=== PATIENT | female | born 1950 | race American Indian/Alaskan Native ===

== ENCOUNTER 2020-01-08 19:18 | Emergency (ER) | payer MEDICARE, MEDICAID ==
--- NOTE | 2020-01-08 19:56 | EDM.PDOC ---
ED HPI GENERAL MEDICAL PROBLEM - General Chief Complaint: General Stated Complaint: MEDICAL [facility] Time Seen by Provider: 01/08/20 19:35 Source of Information: Reports: Patient, EMS History Limitations: Reports: No Limitations - History of Present Illness INITIAL COMMENTS - FREE TEXT/NARRATIVE: 69-year-old female from out of town, brought in by ambulance with lightheadedness and intermittent blurry vision. She is a diabetic but has not been taking her insulin for the last several days, she is out. She was living in a health center in [place] but left A, and she is not welcome back because she broke the rules of social distancing during the coronavirus pandemic. She has a persistent right periorbital discomfort after falling and bumping her head but that is been worked up with x-rays, treated, and she is currently on a tapering prednisone course for the inflammation. She is unsure what medicine she takes. She thinks she may have a UTI as well because she has been more incontinent than usual. No dysuria. Onset: Unknown/Unsure Associated Symptoms: Reports: Weakness, Other (Dizziness, intermittent blurred vision). Denies: Confusion, Chest Pain, Cough, Nausea/Vomiting Treatments DIRECTOR PUBLIC SERVICE: Reports: See EMS Report Lower Abdomen Pain Score (Numeric/FACES): 3 - Related Data Allergies Allergy/AdvReac Type Severity Reaction Status Date / Time acetaminophen Allergy Cannot Verified 01/08/20 19:27 [From Darvocet-N] Remember propoxyphene Allergy Cannot Verified 01/08/20 19:27 [From Darvocet-N] Remember Home Meds: Home Meds . 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 History: Reports: Musculoskeletal History: Reports: Arthritis, Back Pain, Chronic, Fracture, Neck Pain, Chronic Neurological History: Reports: Concussion Psychiatric History: Reports: Anxiety, Depression Endocrine/Metabolic History: Reports: Diabetes, Type II, Obesity/BMI 30+ Other Endocrine/Metabolic History: thyroid issues - Infectious Disease History Infectious Disease History: Reports: Chicken Pox, Measles - Past Surgical History Musculoskeletal Surgical History: Reports: Knee Replacement Oncologic Surgical History: Reports: Biopsy of Breast Social & Family History - Family History Family Medical History: Noncontributory - Tobacco Use Smoking Status *Q: Never Smoker - Caffeine Use Caffeine Use: Reports: Coffee, Soda - Recreational Drug Use Recreational Drug Use: No ED ROS GENERAL - Review of Systems Review Of Systems: See Below Constitutional: Reports: Malaise. Denies: Fever, Chills HEENT: Reports: Vision Change Respiratory: Denies: Shortness of Breath Cardiovascular: Denies: Chest Pain GI/Abdominal: Reports: Abdominal Pain (Intermittent suprapubic and right lower quadrant discomfort with urination, a pulling sensation) : Reports: Incontinence, Urgency, Other (She has a pulling sensation in her lower abdomen with urination). Denies: Dysuria Neurological: Reports: Dizziness, Headache Psychiatric: Reports: No Symptoms ED EXAM, GENERAL - Physical Exam Exam: See Below Exam Limited By: No Limitations General Appearance: Alert, No Apparent Distress Eye Exam: Right Eye: Periorbital Changes (She does react with tenderness to palpation of the right periorbital area but there is no objective deformity or bruising), Bilateral Eye: PERRL Head: Atraumatic Neck: Supple, Non-Tender Respiratory/Chest: No Respiratory Distress, Lungs Clear Cardiovascular: Regular Rate, Rhythm GI/Abdominal: Soft, Tender (Reacts with tenderness to palpation across the lower abdomen but no focal guarding or rebound) Neurological: Alert, Oriented Psychiatric: Flat Affect Skin Exam: Warm, Dry Course - Vital Signs Last Recorded V/S: Last Vital Signs Temp 99.2 F 01/08/20 19:31 Pulse 96 01/08/20 21:03 Resp 18 01/08/20 19:31 BP 163/70 H 01/08/20 21:03 Pulse Ox 92 L 01/08/20 21:03 - Orders/Labs/Meds Orders: Active Orders 24 hr Category Date Time Status GLUCOSE POC LAB TO COLLECT [POC] Stat Lab 01/08/20 21:35 Ordered Labs: Laboratory Tests 01/08/20 01/08/20 01/08/20 Range/Units 19:58 19:58 20:38 WBC 8.6 (4.5-11.0) K/uL RBC 4.25 (3.30-5.50) M/uL Hgb 11.5 L (12.0-15.0) g/dL Hct 36.6 (36.0-48.0) % MCV 86 (80-98) fL MCH 27 (27-31) pg MCHC 31 L (32-36) % Plt Count 173 (150-400) K/uL Neut % (Auto) 80 H (36-66) % Lymph % (Auto) 13 L (24-44) % [place] % (Auto) 6 (2-6) % Eos % (Auto) 1 L (2-4) % Baso % (Auto) 0 (0-1) % Sodium 136 L (140-148) mmol/L Potassium 4.2 (3.6-5.2) mmol/L Chloride 98 L (100-108) mmol/L Carbon Dioxide 32 (21-32) mmol/L Anion Gap 10.2 (5.0-14.0) mmol/L BUN 31 H (7-18) mg/dL Creatinine 1.3 H (0.6-1.0) mg/dL Est Cr Clr Drug Dosing 36.26 mL/min Estimated GFR (MDRD) 41 L (>60) Glucose 621 H* (74-106) mg/dL Calcium 8.5 (8.5-10.1) mg/dL Total Bilirubin 0.8 (0.2-1.0) mg/dL AST 11 L (15-37) U/L ALT 21 (12-78) U/L Alkaline Phosphatase 159 H (46-116) U/L Total Protein 7.8 (6.4-8.2) g/dL Albumin 2.9 L (3.4-5.0) g/dL Globulin 4.9 H (2.3-3.5) g/dL Albumin/Globulin Ratio 0.6 L (1.2-2.2) Urine Color Yellow (YELLOW) Urine Appearance Slightly cloudy A (CLEAR) Urine pH 6.0 (5.0-8.0) Ur Specific [place] 1.015 (1.008-1.030) Urine Protein Trace H (NEGATIVE) mg/dL Urine Glucose (UA) 500 H (NEGATIVE) mg/dL Urine Ketones Negative (NEGATIVE) mg/dL Urine Occult Blood Moderate H (NEGATIVE) Urine Nitrite Negative (NEGATIVE) Urine Bilirubin Negative (NEGATIVE) Urine Urobilinogen 0.2 (0.2-1.0) EU/dL Ur Leukocyte Esterase Negative (NEGATIVE) Urine RBC 5-10 H (0-5) Urine WBC 0-5 (0-5) Ur Epithelial Cells Many Amorphous Sediment Few Urine Bacteria Not seen Urine Mucus Not seen Urine Opiates Screen (NEGATIVE) Ur Oxycodone Screen (NEGATIVE) Urine Methadone Screen (NEGATIVE) Ur Propoxyphene Screen (NEGATIVE) Ur Barbiturates Screen (NEGATIVE) Ur Tricyclics Screen (NEGATIVE) Ur Phencyclidine Scrn (NEGATIVE) Ur Amphetamine Screen (NEGATIVE) U Methamphetamines Scrn (NEGATIVE) Urine MDMA Screen (NEGATIVE) U Benzodiazepines Scrn (NEGATIVE) U Cocaine Metab Screen (NEGATIVE) U Marijuana (THC) Screen (NEGATIVE) 01/08/20 Range/Units 20:38 WBC (4.5-11.0) K/uL RBC (3.30-5.50) M/uL Hgb (12.0-15.0) g/dL Hct (36.0-48.0) % MCV (80-98) fL MCH (27-31) pg MCHC (32-36) % Plt Count (150-400) K/uL Neut % (Auto) (36-66) % Lymph % (Auto) (24-44) % [place] % (Auto) (2-6) % Eos % (Auto) (2-4) % Baso % (Auto) (0-1) % Sodium (140-148) mmol/L Potassium (3.6-5.2) mmol/L Chloride (100-108) mmol/L Carbon Dioxide (21-32) mmol/L Anion Gap (5.0-14.0) mmol/L BUN (7-18) mg/dL Creatinine (0.6-1.0) mg/dL Est Cr Clr Drug Dosing mL/min Estimated GFR (MDRD) (>60) Glucose (74-106) mg/dL Calcium (8.5-10.1) mg/dL Total Bilirubin (0.2-1.0) mg/dL AST (15-37) U/L ALT (12-78) U/L Alkaline Phosphatase (46-116) U/L Total Protein (6.4-8.2) g/dL Albumin (3.4-5.0) g/dL Globulin (2.3-3.5) g/dL Albumin/Globulin Ratio (1.2-2.2) Urine Color (YELLOW) Urine Appearance (CLEAR) Urine pH (5.0-8.0) Ur Specific [place] (1.008-1.030) Urine Protein (NEGATIVE) mg/dL Urine Glucose (UA) (NEGATIVE) mg/dL Urine Ketones (NEGATIVE) mg/dL Urine Occult Blood (NEGATIVE) Urine Nitrite (NEGATIVE) Urine Bilirubin (NEGATIVE) Urine Urobilinogen (0.2-1.0) EU/dL Ur Leukocyte Esterase (NEGATIVE) Urine RBC (0-5) Urine WBC (0-5) Ur Epithelial Cells Amorphous Sediment Urine Bacteria Urine Mucus Urine Opiates Screen Negative (NEGATIVE) Ur Oxycodone Screen Presumptive positive H (NEGATIVE) Urine Methadone Screen Negative (NEGATIVE) Ur Propoxyphene Screen Negative (NEGATIVE) Ur Barbiturates Screen Negative (NEGATIVE) Ur Tricyclics Screen Presumptive positive H (NEGATIVE) Ur Phencyclidine Scrn Negative (NEGATIVE) Ur Amphetamine Screen Negative (NEGATIVE) U Methamphetamines Scrn Negative (NEGATIVE) Urine MDMA Screen Negative (NEGATIVE) U Benzodiazepines Scrn Negative (NEGATIVE) U Cocaine Metab Screen Negative (NEGATIVE) U Marijuana (THC) Screen Negative (NEGATIVE) Meds: Medications Discontinued Medications Generic Name Dose Route Start Last Admin Trade Name Yogiq PRN Reason Stop Dose Admin Insulin Glargine 20 units 01/08/20 20:28 01/08/20 20:59 Lantus Solostar SUBCUT 01/08/20 20:29 20 units ONETIME ONE Administration Insulin Human Lispro 12 unit 01/08/20 20:53 01/08/20 21:09 Humalog SUBCUT 01/08/20 20:54 12 unit ONETIME ONE Administration Insulin Human Regular 12 unit 01/08/20 21:42 01/08/20 21:43 Humulin R IVPUSH 01/08/20 21:43 12 units ONETIME ONE Administration - Re-Assessments/Exams Free Text/Narrative Re-Assessment/Exam: 01/08/20 20:58 Glucose is 620 but the rest of her labs are actually fairly reassuring. Anion gap is normal, white count and hemoglobin are normal. She was given 20 units of long-acting insulin subcu along with 12 units of fast acting insulin. UA is positive for oxycodone which she is not prescribed but shows no evidence of infection. Patient will be discharged with the remaining insulin and her pens, to take 20 units of long-acting insulin daily and a sliding scale using short acting insulin. She should recheck as soon as possible with her primary doctor next week to refill her medications. 01/08/20 22:45 Prior to the patient's sister arriving to take her home she became very angry that we were "doing more". She was also very angry that we were making her wait so long, however we were waiting for her sister to come and pick her up. She refused to take her insulin with her and basically left AMA. Her sister admitted that she "does this all the time". Departure - Departure Time of Disposition: 22:30 Disposition: Home, Self-Care 01 Clinical Impression: Hyperglycemia, Noncompliance with diabetes treatment - Discharge Information Instructions: Hyperglycemia, [id number] Referrals: PCP,None [Primary Care Provider] - Forms: ED Department Discharge Care Plan Goals: Take 20 units of long-acting insulin subcutaneous each morning, and use short acting insulin on a sliding scale as before. Recheck with your primary provider to refill your medications as soon as you are home. Sepsis Event Note - Evaluation Sepsis Screening Result: No Definite Risk - Focused Exam Vital Signs: Vital Signs Temp Pulse Resp BP Pulse Ox 01/08/20 21:03 96 163/70 H 92 L 01/08/20 19:31 99.2 F 99 18 142/57 H 94 L 01/08/20 19:19 99.2 F 99 18 142/57 H 94 L Date Exam was Performed: 01/08/20 Time Exam was Performed: 22:44 - My Orders Last 24 Hours: My Active Orders 01/08/20 21:35 GLUCOSE POC LAB TO COLLECT [POC] Stat - Assessment/Plan Last 24 Hours: My Active Orders 01/08/20 21:35 GLUCOSE POC LAB TO COLLECT [POC] Stat
[2020-01-08] MEDS ORDERED: Insulin Regular, Human 100 Units/ML 3 ML Vial IVPUSH ONE ×2 (20:27→21:42)
[2020-01-08] MEDS ORDERED: Insulin Glargine,Human Rec. Analog 100 Units/ML 3 ML Pen SUBCUT ONE (20:28)
[2020-01-08] MEDS ORDERED: Insulin Lispro 100 Unit/ML 3 ML KwikPen SUBCUT ONE (20:53)
== END 2020-01-08 22:35 | disposition home or self-care (01) ==
LOC: JP.ED 19:18
DX: E11.65 Type 2 diabetes mellitus with hyperglycemia (principal); Z91.14 Patient's other noncompliance with medication regimen; I10 Essential (primary) hypertension; E11.21 Type 2 diabetes mellitus with diabetic nephropathy; E66.9 Obesity, unspecified; Z88.6 Allergy status to analgesic agent; Z87.440 Personal history of urinary (tract) infections; Z68.31 Body mass index [BMI] 31.0-31.9, adult
CPT/HCPCS: 36415; 80053; 80305; 81001; 82962; 85025; 99284; J1815